=== PATIENT | female | born 1985 | race Caucasian/White ===

== ENCOUNTER → 2017-02-15 | Day surgery (SDC) | payer BC ==
[2017-02-10 08:30] VITALS: BP 137/91
[2017-02-10 09:07] LABS: BASO # 0.1 10*3/uL (0.0-0.1); BASO % 0.4 % (0.0-1.0); EOS # 0.2 10*3/uL (0.0-0.4); EOS % 1.8 % (1.0-4.0); HEMATOCRIT 42.3 % (37.0-47.0); LYMPH # 3.5 10*3/uL (1.3-4.4); LYMPH % 29.5 % (27.0-41.0); MEAN CELL VOLUME 91.4 fl (81.0-99.0); MEAN CORPUSCULAR HGB 30.2 pg (27.0-31.0); MEAN CORPUSCULAR HGB CONC 33.1 g/dl (33.0-37.0); MEAN PLATELET VOLUME 9.8 fl (9.6-12.3); MONO # 0.6 10*3/uL (0.1-1.0); MONO % 5.5 % (3.0-9.0); NEUT # 7.3 10*3/uL (2.3-7.9); NEUT % 62.2 % (47.0-73.0); PLATELET COUNT AUTOMATED 275 10*3/uL (130-400); RED BLOOD COUNT 4.63 10*6/uL (4.10-5.10); RED CELL DISTRI WIDTH 12.7 % (0-14.5); WHITE BLOOD COUNT 11.7 10*3/uL (4.8-10.8)
[~2017-02-15] VITALS: Ht 170.1 cm; Wt 122.5 kg
[~2017-02-15] MED LIST: ATIVAN0.5 MG PO; CLINDAMYCIN HC300 MG PO; DAILY VALUE1 EACH PO; MOTRIN800 MG PO; Motrin,Rufen800 MG PO; PAXIL20 MG PO; ZITHROMAX250 MG PO
--- NOTE | ~2017-02-15 | WRIGHTHP ---
[place], [place] PATIENT HISTORY AND PHYSICAL EXAM NAME: JESUS HUITRON [facility] #: [id number] UNIT #: [id number] ROOM: DOCTOR: MANOLO CHOUDHURY MD BIRTHDATE: [birth year] DOS: 02/15/2017 HISTORY OF PRESENT ILLNESS: This is a very pleasant 31-year-old white female, 2, para 2, status post tubal ligation, whose last menstrual period was 01/26/2017, who was seen 02/03/2017 with a negative Pap smear in October and a normal ultrasound in December 2016, who stated that she has always had issues with significant clotty menses and significant dysmenorrhea. Being status post tubal ligation, her menses seemed to improve for a while, but over the last 3 to 4 years they have gotten heavier and clotty with significant membranous dysmenorrhea. The patient has considered the options and desires endometrial ablation. I reviewed the risks and benefits, indications, potential complications and alternatives of hysteroscopy, D and C, NovaSure and also some recent literature suggesting the duration of success and the overall likelihood of success in proceeding with NovaSure at such an early age and in fact reviewed other alternatives. The patient did state understanding and wanted to proceed with the NovaSure. Her consent was signed and she has been scheduled for 02/15/2017. PAST MEDICAL HISTORY: Reveals a history of PCOS, anxiety and having had a traumatic thoracic spine fracture. She has had a tubal ligation, tonsillectomy, 2 pregnancies and 2 vaginal deliveries. SOCIAL HISTORY: She does smoke a pack a day, drinks socially. ALLERGIES: States an allergy to PERCOCET. MEDICATIONS: She does take Ativan 0.5 mg p.r.n. for anxiety, Paxil 20 mg daily for anxiety, Aleve 220 mg q. 12 hours p.r.n. for discomfort and ibuprofen 800 mg up to t.i.d. p.r.n. for discomfort. REVIEW OF SYSTEMS: Otherwise stable. FAMILY HISTORY: Reveals maternal grandfather from esophageal cancer. Her mother is alive, has a history of heart disease and had had a history of ovarian cancer. The exact diagnosis of this is uncertain per the patient. Her father is alive and has hypertension. PHYSICAL EXAMINATION: GENERAL: Reveals a pleasant white female. VITAL SIGNS: She is 5 feet 6 inches, 274 pounds, BMI is 44.2, blood pressure 124/76, oxygen sat is normal and she has no history of sleep apnea, but one might wonder about this based on her BMI and height. HEENT AND NECK: Grossly intact. LUNGS: Grossly intact. CARDIAC: Grossly intact. BREASTS: Grossly intact. ABDOMEN: Grossly intact. EXTREMITIES: Grossly intact. NEUROLOGIC: Grossly intact. GENITOURINARY: External genitalia, vagina, cervix normal. Most recent Pap [place], [place] PATIENT HISTORY AND PHYSICAL EXAM [facility] [id number] UNIT #: [id number] ROOM: DOCTOR: MANOLO CHOUDHURY MD BIRTHDATE: [birth year] negative. Uterus is anteverted and anteflexed. Normal size, configuration, nontender and mobile. Adnexa negative. RECTAL: Deferred. ASSESSMENT: The patient with menorrhagia with irregular cycles for the most part, dysmenorrhea, membranous in nature, status post tubal ligation, who desires more definitive therapy and to that end, on 02/15/2017 she will undergo a hysteroscopy, D and C and NovaSure endometrial ablation. MANOLO CHOUDHURY MD CM:HISPHYS:PATIENT HISTORY AND PHYSICAL EXAMINATION [id number] LALA SEXTON MD 02/11/17 0751 interface
--- NOTE | ~2017-02-15 | O ---
[place], [place] OPERATIVE NOTE NAME: JESUS HUITRON [facility] #: [id number] UNIT #: [id number] ROOM: DOCTOR: MANOLO CHOUDHURY MD BIRTHDATE: [birth year] DOS: 02/15/2017 PREOPERATIVE DIAGNOSES: Extreme hypermenorrhea, large amount of clotting, polymenorrhea and dysmenorrhea, was brought to the operating room today for a hysteroscopy, D and C, NovaSure. POSTOPERATIVE DIAGNOSES: Extreme hypermenorrhea, large amount of clotting, polymenorrhea and dysmenorrhea, was brought to the operating room today for a hysteroscopy, D and C, NovaSure. OPERATION: Hysteroscopy, D and C and NovaSure. SURGEON: Dr. Choudhury and Dr. Medrano. ANESTHESIA: MAC with paracervical block. ESTIMATED BLOOD LOSS: Minimal. REPLACEMENTS: IV fluids and Toradol. COMPLICATIONS: There were no complications. CONDITION: The patient's condition to recovery stable. OPERATIVE SUMMARY: The patient was taken to the operating room in supine position. MAC anesthesia, lithotomy position, prepped and draped in routine manner. The bladder was straight catheterized for about 40 mL of clear urine. Cervix was grasped, paracervical block of 2% Nesacaine was placed at 4 and 7 o'clock respectively, 5 mL each followed by sounding of the uterus to about 8.5-9 cm and the uterus was anteverted and anteflexed. The cervix progressively dilated followed by placement of the hysteroscope into the uterus to examine the fundus. The cornual region, the body of the uterus, and lower uterine segment all were grossly normal with no evidence of fibroids, polyps or any other significant atypicalities. Once that was completed, the hysteroscope was removed and the NovaSure device was placed and after achieving the appropriate depth, width and noting that the cavity was intact, the NovaSure ablation was accomplished without complication. The NovaSure device was removed and repeat hysteroscopy was performed revealing an excellent global endometrial ablation and no other atypicalities. Once that was completed, we removed the hysteroscope and the tenaculum and noting good hemostasis within the vagina and cervix. The patient was cleaned off, taken out of lithotomy position, awakened and transferred to recovery in satisfactory condition, stable vital signs, good hemostasis, and stable sponge and instrument count. [place], [place] OPERATIVE NOTE NAME: JESUS HUITRON UNIT #: [id number] ROOM: DOCTOR: MANOLO CHOUDHURY MD BIRTHDATE: [birth year] MANOLO CHOUDHURY MD CM:OPRECORD:OPERATIVE NOTE [id number] MANOLO CHOUDHURY MD 02/15/17 1326 interface
[2017-02-15 10:04] VITALS: BP 134/78
[2017-02-15 11:33] VITALS: BP 135/66
[2017-02-15 11:48] VITALS: BP 154/74
[2017-02-15 12:03] VITALS: BP 158/84
[2017-02-15 12:15] VITALS: BP 156/82
[2017-02-15 12:29] VITALS: BP 146/75
== END | disposition home or self-care (01) ==
LOC: SDC 02-10 08:00
PROVIDERS: Obstetrics & Gynecology
DX: N92.0 Excessive and frequent menstruation with regular cycle (principal); D26.0 Other benign neoplasm of cervix uteri; N94.6 Dysmenorrhea, unspecified; F41.9 Anxiety disorder, unspecified; F17.210 Nicotine dependence, cigarettes, uncomplicated; Z98.51 Tubal ligation status; Z98.890 Other specified postprocedural states; Z79.899 Other long term (current) drug therapy

== ENCOUNTER 2024-01-12 20:06 | Emergency (ER) | payer BC ==
[~2024-01-12] VITALS: Ht 167.6 cm; Wt 131.5 kg
[~2024-01-12 20:06] MED LIST changes: +DIFLUCAN150 MG PO; +KETOROLAC10 MG PO; +OMNICEF300 MG PO
[2024-01-12 20:50] VITALS: BP 130/72
[2024-01-12] MEDS ORDERED: PROTONIX20 MG PO (20:51)
[2024-01-12] MEDS ORDERED: PAXIL30 M2 PO (20:52)
[2024-01-12 22:39] LABS: BILIRUBIN Negative (Negative); BLOOD Negative (Negative); CLARITY Clear (Clear); COLOR Dark Yellow (Yellow); GLUCOSE Negative (Negative); KETONE Trace (Negative); LEUKO ESTERASE Trace (Negative); NITRITE Negative (Negative); SPECIFIC GRAVITY >= 1.030 (1.001-1.030)
[2024-01-12 23:00] LABS: BACTERIA 1+; EPITHELIAL CELLS 31-40
[2024-01-12] MEDS ORDERED: PREDNISONE20 M1 PO (23:24)
[2024-01-12] MEDS ORDERED: methylPREDNISolone sod succ 125 MG VIAL IM ONE (23:25)
== END 2024-01-12 23:35 | disposition home or self-care (01) ==
LOC: ED 20:06
PROVIDERS: Nurse Practitioner Family
DX: M54.50 Low back pain, unspecified (principal); F41.9 Anxiety disorder, unspecified; Z88.5 Allergy status to narcotic agent; Z98.51 Tubal ligation status; Z90.89 Acquired absence of other organs; Z98.890 Other specified postprocedural states; Z79.899 Other long term (current) drug therapy